=== PATIENT | male | born 1970 ===

== ENCOUNTER 2020-07-30 08:59 | Inpatient (IN) | payer SELFPAY ==
[2020-07-30] VITALS (25 sets, daily range): BP systolic 64–107; BP diastolic 29–61
[~2020-07-30] VITALS: Ht 170.2 cm; Wt 62.4 kg
[2020-07-30] MEDS ORDERED: CefTRIAXone 2gm/D5W 50ml BAG 50 ML IV ONE (09:10)
[2020-07-30] MEDS ORDERED: normal saline 1000ML IV soln IV ONE (09:10)
[2020-07-30] MEDS ORDERED: normal saline 1000ML IV soln IVB ONE (09:10)
[2020-07-30] MEDS ORDERED: TETanus/Pertussis (Acell)/Diphther VAC/PF (Tdap-Adult) 0.5ml syringe IMVAC ONE (09:15)
[2020-07-30] MEDS ORDERED: pantoprazole 40 MG vial IV ONE (09:15)
[2020-07-30] MEDS ORDERED: LIDOcaine 1% W/epiNEPHrine 1:200,000 10ml vial IJ ONE (09:15)
[2020-07-30] MEDS ORDERED: naloxone 2mg/2ml inj IV STA (09:16)
[2020-07-30] MEDS ORDERED: octreotide 100mcg/1 ml ampule SQ ONE (09:30)
[2020-07-30 09:36] LABS: ABG PCO2 (T) 40.9 mmHg (35.0-48.0); ABG PO2 (T) 109.6 mmHg (75.0-100.0); ALLEN'S TEST POSITIVE; PATIENT TEMPERATURE 35.3; PEEP 5 cm H2O; TOTAL HEMOGLOBIN < 4.7 G/dl (14.0-18.0)
--- NOTE | 2020-07-30 09:36 | NUR ---
[id number],[place] [id number]
[2020-07-30 09:43] LABS: BASOPHILS % (AUTO) 0.2 % (0-1); EOSINOPHILS % (AUTO) 0.1 % (0-6); LYMPHOCYTES # (AUTO) 0.7 X10'3 (1.1-4.8); LYMPHOCYTES % (AUTO) 7.3 % (21-51); MEAN CORPUSCULAR HEMOGLOBIN 27.3 PG (27.0-31.0); MEAN CORPUSCULAR HGB CONC 27.5 g/dL (33.0-36.5); MEAN CORPUSCULAR VOLUME 99.4 FL (78-98); MEAN PLATELET VOLUME 9.2 FL (7.4-10.4); MONOCYTES % (AUTO) 10.1 % (2-12); NEUTROPHILS # (AUTO) 8.3 X10'3 (1.8-7.7); NEUTROPHILS % (AUTO) 82.3 % (42-75); PLATELET COUNT 77 X10'3 (140-440); RED BLOOD COUNT 1.61 X10'6 (4.70-6.10); RED CELL DISTRIBUTION WIDTH 22.4 % (11.5-14.5); WHITE BLOOD COUNT 10.1 X10'3 (4.5-11.0)
[2020-07-30 09:46] LABS: HEMOGLOBIN 4.4 g/dl (14.0-17.9)
[2020-07-30 09:57] LABS: CLARITY,URINE CLOUDY (Clear); COLOR,URINE YELLOW (Yellow); GLUCOSE, URINE >=1000 mg/dl (Neg); KETONES,URINE 15 mg/dl (Neg); LEUKOCYTE ESTERASE ,URINE NEGATIVE (Neg); NITRITES, URINE NEGATIVE (Neg); OCCULT BLOOD,URINE MODERATE (Neg); PH,URINE 5.5 (4.8-8.0); PROTEIN,URINE TRACE mg/dl (Neg); UROBILINOGEN,URINE 0.2 E.U/dL (0.2-1.0)
[2020-07-30 09:58] LABS: UA COLLECTION TYPE FOLEY CATH
[2020-07-30] MEDS: octreotide inj. 500 MCG in normal saline 100ml IV soln 100 ML IV SCH (10:04)
[2020-07-30] MEDS ORDERED: iohexol 300mg/ml 100ml inj. ONE (10:07)
[2020-07-30 10:12] LABS: URINE AMPHETAMINE SCREEN NEGATIVE (Neg); URINE BARBITUATE SCREEN NEGATIVE (Neg); URINE BENZODIAZEPINES SCREEN NEGATIVE (Neg); URINE CANNABINOID SCREEN NEGATIVE (Neg); URINE COCAINE SCREEN NEGATIVE (Neg); URINE METHADONE SCREEN NEGATIVE (Neg); URINE OPIATE SCREEN NEGATIVE (Neg); URINE PHENCYCLIDINE SCREEN NEGATIVE (Neg)
[2020-07-30 10:12] LABS: ALANINE AMINOTRANSFERASE 61 U/L (12-78); ALBUMIN 1.6 G/DL (3.4-5.0); ALBUMIN/GLOBULIN RATIO 0.4 (1.1-1.5); ALKALINE PHOSPHATASE 317 IU/L (46-116); ANION GAP 32 (8-16); ASPARTATE AMINO TRANSFERASE 81 U/L (10-37); BILIRUBIN,TOTAL 1.4 MG/DL (0.1-1.0); BLOOD UREA NITROGEN 15 MG/DL (7-18); BUN/CREATININE RATIO 10.6 (5.4-32.0); CHLORIDE 100 MMOL/L (99-107); CREATININE 1.42 MG/DL (0.60-1.10); ETHANOL 0.014 GM/DL (0.0-0.010); POTASSIUM 3.9 MMOL/L (3.5-5.1); SODIUM 139 MMOL/L (135-145); TOTAL PROTEIN 5.5 G/DL (6.4-8.2); eGFR 52 ML/MIN
[2020-07-30] MEDS ORDERED: insulin regular, human 10 units/0.1 ml syringe IV ONE (10:15)
[2020-07-30 10:16] LABS: GLUCOSE 538 MG/DL (70-104)
[2020-07-30] MEDS: pantoprazole 40MG/NS 100ML BAG 100 ML IV SCH ×3 (10:16→19:28)
[2020-07-30 10:18] LABS: RBC,URINE 50-100 /HPF (0-2); SPERM MANY /HPF (NEGATIVE)
[2020-07-30 10:21] LABS: BACTERIA,URINE 2+ /HPF (Neg)
[2020-07-30 10:22] LABS: SQUAMOUS EPITHELIAL CELL,UR FEW /LPF (FEW)
[2020-07-30 10:39] LABS: PARTIAL THROMBOPLASTIN TIME 74 SECONDS (22-32)
[2020-07-30] MEDS ORDERED: magnesium 4gm in 100ml NS 100 ML IV PRN (11:40)
[2020-07-30] MEDS ORDERED: potassium Cl 20 mEq SR tablet PO PRN ×2 (11:40)
[2020-07-30] MEDS ORDERED: magnesium hydroxide 30ml (MOM) UD suspension PO PRN (11:40)
[2020-07-30] MEDS ORDERED: acetaminophen 325mg tablet PO PRN (11:40)
[2020-07-30] MEDS ORDERED: magnesium Cl slow-release 64mg tablet PO PRN (11:40)
[2020-07-30] MEDS ORDERED: magnesium 2GM in 50ml NS 50 ML IV PRN (11:40)
[2020-07-30] MEDS ORDERED: ondansetron/PF 4mg/2ml inj IV PRN (11:40)
[2020-07-30] MEDS: K, MAG and/or Phos replacement - Verify level? MC SCH (11:40)
[2020-07-30] MEDS ORDERED: ipratropium/albuterol 3ml nebule NEB PRN (11:40)
[2020-07-30] MEDS ORDERED: Neutra Phos packet PO PRN (11:40)
[2020-07-30] MEDS ORDERED: sodium phosphate inj. 30 MMOL in dextrose 5%-water 250 ML IV PRN (11:40)
[2020-07-30] MEDS ORDERED: sodium phosphate inj. 15 MMOL in dextrose 5%-water 250 ML IV PRN (11:40)
[2020-07-30 11:43] LABS: ANISOCYTOSIS 3+; PLATELET ESTIMATE DECREASED; TOTAL CELLS COUNTED 100
[2020-07-30 11:44] LABS: HYPOCHROMASIA 2+
--- NOTE | 2020-07-30 11:46 | NUR ---
TC FROM DR. HUERTAS FOR CONDITION REPORT. DR. HUERTAS STATES HE WILL SPEAK WITH BUSINESS INFO CONSULTANT TO COORDINATE CARE.
[2020-07-30] MEDS: Insulin Reg/NS 100units/100mL 100 ML IV SCH (11:56)
--- NOTE | 2020-07-30 12:15 | NUR ---
Patient in room ICU 2044. I have received report from Delia MASON and had the opportunity to ask questions and assume patient care. Reported that patient was never responsive or responsive to any stimuli. Reported heart rate in the low 100s, sating 100% on 100% fio2, blood pressure 105/52, 1700 luke red blood out of og tube in ER, 4 units PRBC given in ER. Sandostatin, protonix, insulin, and NS infusing as ordered to R quad Sublclavian. Temp reported 33.4 via bladder, RN stated bear hugger on. Rn stated she will be up shortly
[2020-07-30] MEDS: normal saline 1000ml 1,000 ML IV SCH ×2 (12:26→13:55)
--- NOTE | 2020-07-30 12:50 | NUR ---
[id number], copious amounts of blood coming out of mouth and nose, Blood pressure 70/40, Dr. Esteban bedsided ordered levophed, quickly maxed out levophed at 1 mcg/kg/min, added vasopressin and ordered to start at max dose fo 0.04u/min Dr. Esteban bedside initiated level one transfusion for 2l of warm saline then for a total of 2 units PRBC, 8 FFP, 1 pack platelets, and 2 cyro. new labs drawn and criticals reported to Dr. Eulalia Ace bedside to evaluate patient and preform EGD, at end of EGD patient dropped blood pressure to 70's systolic with a map in the 40's and dropped sat to the 50's, Fio2 increased to 100%, Epical gtt started, Dr. Esteban also started bicarb gtt. Transamic Acid given, human prothombin complex ordered and started Patient still bleeding profusely from the nose and mouth Dr. Esteban aware, ordered 2 more units PRBC, calcium gluconated ordered and administered Bicarb drip ordered and started 1700 luke red blood between the og suction, oral and nasal suctioning
[2020-07-30] MEDS ORDERED: NORepinephrine 8mg/ 250ml NS 250 ML IV ONE (13:15)
[2020-07-30 13:30] LABS: ABG BASE EXCESS -27.8 mmol/L (-2.0-2.0); ABG HCO3 5.3 mmol/L (22.0-26.0); ABG OXYGEN SATURATION 99.3 % (94-97); ABG PCO2 (T) 28.9 mmHg (35.0-48.0); ABG PO2 (T) 490.5 mmHg (75.0-100.0); ALLEN'S TEST POSITIVE; FCOHb 0.2 % (0.0-3.9); FMetHb 0.8 % (0.0-1.5); FO2Hb 98.3 % (94-97); PATIENT TEMPERATURE 33.7; PEEP 5 cm H2O; RESPIRATORY RATE 20 b/min; TIDAL VOLUME 400 mL
[2020-07-30] MEDS ORDERED: calcium gluconate inj. 2 GM in normal saline 100ml IV soln 80 ML IV STA (13:50)
[2020-07-30] MEDS ORDERED: tranexamic acid 1gm/0.7% sal. 100 ML IV ONE (14:00)
[2020-07-30 14:14] LABS: BASOPHILS # (AUTO) 0.1 X10'3 (0-0.2); BASOPHILS % (AUTO) 0.3 % (0-1); EOSINOPHILS # (AUTO) 0.1 X10'3 (0-0.9); HEMOGLOBIN 9.8 g/dl (14.0-17.9); MEAN PLATELET VOLUME 8.7 FL (7.4-10.4)
[2020-07-30 14:15] LABS: EOSINOPHILS % (AUTO) 0.3 % (0-6); LYMPHOCYTES # (AUTO) 1.2 X10'3 (1.1-4.8); MONOCYTES # (AUTO) 0.5 X10'3 (0-0.9); MONOCYTES % (AUTO) 2.9 % (2-12); NEUTROPHILS # (AUTO) 15.8 X10'3 (1.8-7.7); NEUTROPHILS % (AUTO) 89.5 % (42-75)
[2020-07-30 14:30] LABS: ALANINE AMINOTRANSFERASE 451 U/L (12-78); ALBUMIN 1.2 G/DL (3.4-5.0); ALBUMIN/GLOBULIN RATIO 0.4 (1.1-1.5); ALKALINE PHOSPHATASE 258 IU/L (46-116); ANION GAP 24 (8-16); ASPARTATE AMINO TRANSFERASE 987 U/L (10-37); BILIRUBIN,TOTAL 1.3 MG/DL (0.1-1.0); BLOOD UREA NITROGEN 17 MG/DL (7-18); BUN/CREATININE RATIO 10.5 (5.4-32.0); CALCIUM 6.4 MG/DL (8.5-10.1); CHLORIDE 108 MMOL/L (99-107); CREATININE 1.62 MG/DL (0.60-1.10); GLUCOSE 400 MG/DL (70-104); POTASSIUM 5.2 MMOL/L (3.5-5.1); SODIUM 140 MMOL/L (135-145); TOTAL PROTEIN 4.4 G/DL (6.4-8.2); eGFR 45 ML/MIN
[2020-07-30 14:45] LABS: PLATELET COUNT 44 X10'3 (140-440)
[2020-07-30 14:46] LABS: HEMATOCRIT 29.7 % (42.0-52.0); MEAN CORPUSCULAR VOLUME 90.8 FL (78-98); RED BLOOD COUNT 3.27 X10'6 (4.70-6.10); WHITE BLOOD COUNT 17.1 X10'3 (4.5-11.0)
[2020-07-30 14:47] LABS: MEAN CORPUSCULAR HEMOGLOBIN 29.9 PG (27.0-31.0); MEAN CORPUSCULAR HGB CONC 32.9 g/dL (33.0-36.5); RED CELL DISTRIBUTION WIDTH 15.8 % (11.5-14.5)
[2020-07-30] MEDS ORDERED: atropine 0.1mg/ml 10ml syringe ONE (15:00)
[2020-07-30] MEDS ORDERED: etomidate 2mg/ml inj. ONE (15:00)
[2020-07-30] MEDS ORDERED: rocuronium 10mg/ml inj IV ONE (15:00)
[2020-07-30] MEDS ORDERED: fentaNYL/PF 50MCG/1 ML 2ML syringe ONE (15:24)
[2020-07-30] MEDS ORDERED: MIDAZolam 1 MG/ML 5ML VIAL ONE (15:24)
[2020-07-30 15:25] LABS: ABG BASE EXCESS -22.2 mmol/L (-2.0-2.0); ABG HCO3 7.3 mmol/L (22.0-26.0); ABG OXYGEN SATURATION 95.2 % (94-97); ABG PCO2 (T) 30.1 mmHg (35.0-48.0); ABG PO2 (T) 86.8 mmHg (75.0-100.0); ALLEN'S TEST POSITIVE; FCOHb 0.1 % (0.0-3.9); FO2Hb 94.2 % (94-97); PATIENT TEMPERATURE 35.6; PEEP 5 cm H2O; RESPIRATORY RATE 20 b/min; TIDAL VOLUME 400 mL
[2020-07-30] MEDS ORDERED: NORepinephrine 8mg/ 250ml NS 250 ML IV SCH (15:50)
[2020-07-30 15:57] LABS: PARTIAL THROMBOPLASTIN TIME 65 SECONDS (22-32)
[2020-07-30 15:59] LABS: ALANINE AMINOTRANSFERASE 251 U/L (12-78); ALBUMIN 1.8 G/DL (3.4-5.0); ALBUMIN/GLOBULIN RATIO 0.8 (1.1-1.5); ALKALINE PHOSPHATASE 116 IU/L (46-116); ANION GAP 22 (8-16); ASPARTATE AMINO TRANSFERASE 614 U/L (10-37); BLOOD UREA NITROGEN 16 MG/DL (7-18); BUN/CREATININE RATIO 10.3 (5.4-32.0); CHLORIDE 110 MMOL/L (99-107); CREATININE 1.55 MG/DL (0.60-1.10); GLUCOSE 332 MG/DL (70-104); MAGNESIUM 1.8 MG/DL (1.5-2.4); PHOSPHORUS 6.8 MG/DL (2.3-4.5); SODIUM 143 MMOL/L (135-145); TOTAL PROTEIN 4.2 G/DL (6.4-8.2); eGFR 47 ML/MIN
[2020-07-30] MEDS: vasopressin inj. 40 UNIT in normal saline 50ml IV soln 38 ML IV SCH ×2 (16:01→23:29)
[2020-07-30 16:05] LABS: POTASSIUM 6.2 MMOL/L (3.5-5.1)
[2020-07-30] MEDS ORDERED: calcium chloride 100 MG/1 ML inj IV ONE (16:12)
[2020-07-30] MEDS ORDERED: epiNEPHrine 1 mg/ml 30ml MDV ONE (16:12)
[2020-07-30] MEDS ORDERED: sodium bicarbonate (8.4%) 1 mEq/ml syringe ONE (16:13)
[2020-07-30] MEDS ORDERED: HUMAN PROTHROMBIN COMPLEX PCC IV ONE (16:15)
[2020-07-30] MEDS: HUMAN PROTHROMBIN COMPLEX PCC IV ONE ×2 (16:30→16:45)
[2020-07-30 16:35] LABS: BASOPHILS % (AUTO) 0 % (0-1); EOSINOPHILS % (AUTO) 0.1 % (0-6); LYMPHOCYTES # (AUTO) 0.5 X10'3 (1.1-4.8); LYMPHOCYTES % (AUTO) 8.5 % (21-51); MEAN CORPUSCULAR HEMOGLOBIN 30.6 PG (27.0-31.0); MEAN CORPUSCULAR HGB CONC 30.7 g/dL (33.0-36.5); MEAN CORPUSCULAR VOLUME 99.6 FL (78-98); MEAN PLATELET VOLUME 8.3 FL (7.4-10.4); MONOCYTES # (AUTO) 0.1 X10'3 (0-0.9); MONOCYTES % (AUTO) 1.9 % (2-12); NEUTROPHILS # (AUTO) 5.2 X10'3 (1.8-7.7); NEUTROPHILS % (AUTO) 89.5 % (42-75); RED BLOOD COUNT 1.54 X10'6 (4.70-6.10); RED CELL DISTRIBUTION WIDTH 16.4 % (11.5-14.5); WHITE BLOOD COUNT 5.8 X10'3 (4.5-11.0)
[2020-07-30 16:38] LABS: HEMOGLOBIN 4.7 g/dl (14.0-17.9)
[2020-07-30 16:39] LABS: HEMATOCRIT 15.3 % (42.0-52.0); PLATELET COUNT 48 X10'3 (140-440)
[2020-07-30] MEDS ORDERED: epiNEPHrine inj 5 MG in normal saline 250ml IV soln 245 ML IV SCH (16:45)
[2020-07-30] MEDS: sodium bicarbonate (8.4%) inj. 100 MEQ in dextrose 5%-water 1,000 ML IV SCH (17:53)
[2020-07-30 18:20] LABS: ANISOCYTOSIS 1+; NUCLEATED RED BLOOD CELLS 2 /100WBC (0-0); PLATELET ESTIMATE DECREASED; TOTAL CELLS COUNTED 100
[2020-07-30 18:24] LABS: ACANTHOCYTES 2+; BURR CELLS 1+; HOWELL-JOLLY BODIES FEW
[2020-07-30 18:25] LABS: POLYCHROMASIA 1+
[2020-07-30] MEDS: NORepinephrine 32 MG in Normal Saline 250ml IV soln IV SCH ×2 (18:41→19:28)
[2020-07-30] MEDS: EPIneph 5MG & 1000mg Calcium/250ML bag IV PRN ×6 (19:35→23:29)
[2020-07-30 19:41] LABS: BASOPHILS % (AUTO) 0.4 % (0-1); HEMOGLOBIN 7.6 g/dl (14.0-17.9); MEAN CORPUSCULAR VOLUME 97.9 FL (78-98); RED BLOOD COUNT 2.51 X10'6 (4.70-6.10)
[2020-07-30 19:45] LABS: HEMATOCRIT 24.6 % (42.0-52.0); MEAN CORPUSCULAR HEMOGLOBIN 30.4 PG (27.0-31.0); RED CELL DISTRIBUTION WIDTH 16.3 % (11.5-14.5); WHITE BLOOD COUNT 7.9 X10'3 (4.5-11.0)
[2020-07-30 19:46] LABS: EOSINOPHILS % (AUTO) 0.1 % (0-6); LYMPHOCYTES # (AUTO) 1.1 X10'3 (1.1-4.8); LYMPHOCYTES % (AUTO) 14.2 % (21-51); MEAN PLATELET VOLUME 9.1 FL (7.4-10.4); MONOCYTES # (AUTO) 0.3 X10'3 (0-0.9); MONOCYTES % (AUTO) 4.3 % (2-12); NEUTROPHILS # (AUTO) 6.4 X10'3 (1.8-7.7)
[2020-07-30 19:48] LABS: PLATELET COUNT 39 X10'3 (140-440)
[2020-07-30 20:06] LABS: ALANINE AMINOTRANSFERASE 597 U/L (12-78); ALBUMIN 1.6 G/DL (3.4-5.0); ALBUMIN/GLOBULIN RATIO 0.7 (1.1-1.5); ALKALINE PHOSPHATASE 132 IU/L (46-116); ANION GAP 24 (8-16); BILIRUBIN,TOTAL 1.6 MG/DL (0.1-1.0); BLOOD UREA NITROGEN 15 MG/DL (7-18); BUN/CREATININE RATIO 7.7 (5.4-32.0); CALCIUM 6.9 MG/DL (8.5-10.1); CHLORIDE 112 MMOL/L (99-107); CREATININE 1.96 MG/DL (0.60-1.10); GLUCOSE 245 MG/DL (70-104); MAGNESIUM 1.8 MG/DL (1.5-2.4); PHOSPHORUS 7.2 MG/DL (2.3-4.5); POTASSIUM 5.2 MMOL/L (3.5-5.1); SODIUM 147 MMOL/L (135-145); TOTAL PROTEIN 3.9 G/DL (6.4-8.2); eGFR 36 ML/MIN
[2020-07-30 20:09] LABS: ASPARTATE AMINO TRANSFERASE 1614 U/L (10-37)
[2020-07-30 20:11] LABS: TOTAL CARBON DIOXIDE 10.8 MMOL/L (24-32); TROPONIN I 0.86 NG/ML (0.0-0.05)
[2020-07-30 20:13] LABS: PARTIAL THROMBOPLASTIN TIME > 139 SECONDS (22-32)
--- NOTE | 2020-07-30 20:30 | NUR ---
call placed to Dr. Anand regarding critical lab values, awaiting return call.
--- NOTE | 2020-07-30 20:48 | NUR ---
Spoke to Dr. Anand regarding critical lab values, PTT, Co2 10.8, Trop .86, Ptt greater then 139, and LA 16.9. reviewed that pt continues to bleed from his nose and mouth, reviewed that pt is on Maxamine amount of Levophed, max Epi nicky, max vasopressin, SBP in the 70-8- Addendum: 07/30/20 at 2055 by Dorothy Newell RN SBP remains 70-80 MAP less then 60. no new orders at this time
--- NOTE | 2020-07-30 23:10 | NUR ---
spoke to pts family updated on pts condition, they are driving here from [facility], they are about 6 hours away.
[2020-07-31] VITALS (12 sets, daily range): BP systolic 59–77; BP diastolic 35–40
[2020-07-31] MEDS: octreotide inj. 500 MCG in normal saline 100ml IV soln 100 ML IV SCH (00:44)
[2020-07-31 00:47] LABS: BASOPHILS # (AUTO) 0.1 X10'3 (0-0.2); BASOPHILS % (AUTO) 0.5 % (0-1); EOSINOPHILS % (AUTO) 0.1 % (0-6); LYMPHOCYTES # (AUTO) 1.1 X10'3 (1.1-4.8); MEAN CORPUSCULAR HEMOGLOBIN 29.9 PG (27.0-31.0); MEAN CORPUSCULAR HGB CONC 31.3 g/dL (33.0-36.5); MEAN CORPUSCULAR VOLUME 95.5 FL (78-98); MEAN PLATELET VOLUME 8.9 FL (7.4-10.4); MONOCYTES # (AUTO) 1.1 X10'3 (0-0.9); MONOCYTES % (AUTO) 9.8 % (2-12); NEUTROPHILS # (AUTO) 9.4 X10'3 (1.8-7.7); NEUTROPHILS % (AUTO) 80.6 % (42-75); RED BLOOD COUNT 2.29 X10'6 (4.70-6.10); RED CELL DISTRIBUTION WIDTH 16.5 % (11.5-14.5); WHITE BLOOD COUNT 11.7 X10'3 (4.5-11.0)
[2020-07-31 00:52] LABS: HEMATOCRIT 21.9 % (42.0-52.0); HEMOGLOBIN 6.9 g/dl (14.0-17.9); PLATELET COUNT 36 X10'3 (140-440)
[2020-07-31 01:07] LABS: ALBUMIN 1.5 G/DL (3.4-5.0); ALBUMIN/GLOBULIN RATIO 0.7 (1.1-1.5); ALKALINE PHOSPHATASE 166 IU/L (46-116); ANION GAP 22 (8-16); BILIRUBIN,TOTAL 2.1 MG/DL (0.1-1.0); BLOOD UREA NITROGEN 15 MG/DL (7-18); CALCIUM 7.8 MG/DL (8.5-10.1); CHLORIDE 113 MMOL/L (99-107); GLUCOSE 162 MG/DL (70-104); PHOSPHORUS 6.9 MG/DL (2.3-4.5); POTASSIUM 4.4 MMOL/L (3.5-5.1); SODIUM 146 MMOL/L (135-145); TOTAL PROTEIN 3.7 G/DL (6.4-8.2); eGFR 27 ML/MIN
[2020-07-31] MEDS: pantoprazole 40MG/NS 100ML BAG 100 ML IV SCH ×2 (01:07→06:00)
[2020-07-31 01:21] LABS: ALANINE AMINOTRANSFERASE 1149 U/L (12-78); ASPARTATE AMINO TRANSFERASE 3870 U/L (10-37); TOTAL CARBON DIOXIDE 11.5 MMOL/L (24-32)
--- NOTE | 2020-07-31 02:09 | NUR ---
Spoke to Dr. Anand regarding pts current critical care labs, HGB 6.9, HCT 21.9, PLT 36, Co2 11.5 LA 15.2 blood pressure of 66/38 continues on maximin Levophed, vasopressin and Epi-nicky, orders to DC insulin drip and to give a 10 pk plts.
[2020-07-31 03:14] LABS: ABG BASE EXCESS -22.3 mmol/L (-2.0-2.0); ABG HCO3 9.6 mmol/L (22.0-26.0); ABG OXYGEN SATURATION 40.8 % (94-97); ABG PCO2 (T) 52.4 mmHg (35.0-48.0); ABG PO2 (T) < 28.0 mmHg (75.0-100.0); ALLEN'S TEST POSITIVE; FCOHb 0.3 % (0.0-3.9); FMetHb 0.4 % (0.0-1.5); FO2Hb 40.5 % (94-97); PATIENT TEMPERATURE 36.2; PEEP 5 cm H2O; RESPIRATORY RATE 20 b/min; TIDAL VOLUME 400 mL
[2020-07-31] MEDS: NORepinephrine 32 MG in Normal Saline 250ml IV soln IV SCH (03:26)
[2020-07-31] MEDS: normal saline 1000ml 1,000 ML IV SCH (03:40)
--- NOTE | 2020-07-31 03:45 | NUR ---
spoke to Dr. Anand reviewed reviewed ABG/VBG results after 3 attempts to obtain an ABG but was only able to rec a VBG reviewed current v/s, orders received to not administer the Plt.s no need to do another attempt at an ABG. no further orders at this time.
[2020-07-31] MEDS: sodium bicarbonate (8.4%) inj. 100 MEQ in dextrose 5%-water 1,000 ML IV SCH (05:00)
--- NOTE | 2020-07-31 06:17 | NUR ---
report given to rec rn plan of care reviewed.
[2020-07-31] MEDS: Insulin Reg/NS 100units/100mL 100 ML IV SCH (06:25)
--- NOTE | 2020-07-31 06:37 | NUR ---
Patient in room ICU 2044. I have received report from Abiel AMSON and had the opportunity to ask questions and assume patient care.
--- NOTE | 2020-07-31 07:30 | NUR ---
Patients son and nephew arrived, they are bedside with Dr. Esteban, updated on patients current condition and prognosis, discussed code status. Patients son stated he would like to call the patients and inform her of his current condition. Son completed the phone call and stated that he wants to make him comfort care. Comfort care orders placed, per Dr. Esteban extubate and stop meds as soon as the patients family is ready. Discussed after care arrangements, they are trying to arrange a way to get the patients body back to [place] for burial. Waiting for one more visitor to say their goodbyes
[2020-07-31] MEDS ORDERED: morphine 10mg/ml inj. IV PRN (07:45)
[2020-07-31] MEDS ORDERED: NO HOME MEDS (07:55)
[2020-07-31] MEDS ORDERED: pantoprazole 40 MG vial IV SCH (08:00)
[2020-07-31] MEDS: K, MAG and/or Phos replacement - Verify level? MC SCH (08:00)
[2020-07-31] MEDS: EPIneph 5MG & 1000mg Calcium/250ML bag IV PRN ×3 (08:44)
--- NOTE | 2020-07-31 09:52 | NUR ---
Called [facility] [phone] rosalva gray ref# [id number] transfered to Toan the coordinator for our area, he was ruled out as an organ donor, but to call back after expiration for tissue to make their decision on donation
--- NOTE | 2020-07-31 10:40 | NUR ---
extubated patient to comfort care, rt bedside, all drips stopped
--- NOTE | 2020-07-31 10:51 | NUR ---
Asystole, no heart tones or lung sounds heard 10:51am
--- NOTE | 2020-07-31 10:52 | NUR ---
RN IS TO DOCUMENT YES TO ALL APPLICABLE AREAS Pronouncement of : 1. Time Physician Notified: 2. Date of : 07/31/2020 3. Time of : 10:51 4. DNR/Withdraw life support documented: yes 5. Monitor strip has been placed on chart: yes 6. Assessment process is of one-minute duration and includes following criteria: a) Patient is unresponsive to all stimuli: yes b) Pupils fixed and non-reactive: yes c) Auscultation of precordium reveals absence of heart tones:yes d) Auscultation of lungs reveals absence of breath sounds:yes e) Absence of blood pressure / all vital signs:yes f) QRS complexes are not present on monitor / EKG strip:yes g) Pacer spikes without capture:yes 4. Comments: No heart tones or breath sounds auscultated, ekg strip Asystole, patients family bedside, belonging sent home with patients kaye Guevara [phone] nephew graciela bedside as well [phone]
--- NOTE | 2020-07-31 11:08 | NUR ---
Noted pt has been made DNR w/ comfort care. Will continue to monitor. Addendum: 07/31/20 at [address] Amended: Links added.
--- NOTE | 2020-07-31 11:40 | NUR ---
contact phone numbers Armond Guevara [phone] Stefanie Woods [phone]
--- NOTE | 2020-07-31 11:41 | NUR ---
Called [facility] [phone] notified them of patients passing and the families wishes to use their services
== END 2020-07-31 10:51 | disposition expired | DRG 441 ==
LOC: ER 08:59 → EDBD 08:59 → ED HOLD 11:40 → ICU 2S 13:20
PROVIDERS: ADMIT Surgery Surgical Critical Care; ATTEND Surgery Surgical Critical Care
PROC: 5A1945Z Respiratory Ventilation, 24-96 Consecutive Hours (ICD-10-PCS; principal; 2020-07-30)
PROC: 0BH17EZ Insertion of Endotracheal Airway into Trachea, Via Natural or Artificial Opening (ICD-10-PCS; 2020-07-30)
PROC: 3E0234Z Introduction of Serum, Toxoid and Vaccine into Muscle, Percutaneous Approach (ICD-10-PCS; 2020-07-30)
PROC: 30233K1 Transfusion of Nonautologous Frozen Plasma into Peripheral Vein, Percutaneous Approach (ICD-10-PCS; 2020-07-30)
PROC: 30233N1 Transfusion of Nonautologous Red Blood Cells into Peripheral Vein, Percutaneous Approach (ICD-10-PCS; 2020-07-30)
PROC: 30233R1 Transfusion of Nonautologous Platelets into Peripheral Vein, Percutaneous Approach (ICD-10-PCS; 2020-07-30)
PROC: 30233M1 Transfusion of Nonautologous Plasma Cryoprecipitate into Peripheral Vein, Percutaneous Approach (ICD-10-PCS; 2020-07-30)
PROC: BW251ZZ Computerized Tomography (CT Scan) of Chest, Abdomen and Pelvis using Low Osmolar Contrast (ICD-10-PCS; 2020-07-30)
PROC: 02HV33Z Insertion of Infusion Device into Superior Vena Cava, Percutaneous Approach (ICD-10-PCS; 2020-07-30)
PROC: 0HQ1XZZ Repair Face Skin, External Approach (ICD-10-PCS; 2020-07-30)
PROC: 0DJ08ZZ Inspection of Upper Intestinal Tract, Via Natural or Artificial Opening Endoscopic (ICD-10-PCS; 2020-07-30)
DX: K76.6 Portal hypertension (principal); I85.11 Secondary esophageal varices with bleeding; J96.00 Acute respiratory failure, unspecified whether with hypoxia or hypercapnia; D62 Acute posthemorrhagic anemia; E87.2 Acidosis; R18.8 Other ascites; K74.60 Unspecified cirrhosis of liver; D72.829 Elevated white blood cell count, unspecified; E11.9 Type 2 diabetes mellitus without complications; W18.39XA Other fall on same level, initial encounter; F10.10 Alcohol abuse, uncomplicated; I86.4 Gastric varices; R57.8 Other shock; S01.81XA Laceration without foreign body of other part of head, initial encounter; Y90.0 Blood alcohol level of less than 20 mg/100 ml; Z51.5 Encounter for palliative care; Z23 Encounter for immunization; Y93.89 Activity, other specified; Y92.89 Other specified places as the place of occurrence of the external cause; Y99.8 Other external cause status
CPT/HCPCS: 36415; 36430; 36600; 43235; 70450; 71045; 71260; 72125; 74177; 80053; 80305; 80320; 81001; 82140; 82330; 82803; 82948; 83605; 83735; 83880; 84100; 84145; 84484; 85007; 85018; 85025; 85610; 85730; 86885; 86900; 86901; 86920; 87040; 87088; 90715; 93005; 94002; 94003; 94760; 94799; 96365; 96366; 96372; 96375; 99285; 99292; C9113; C9132; G0378; J0171; J0461; J0610; J0696; J1815; J2250; J2310; J2354; J3010; J3490; J7030; J7050; P9012; P9016; P9035; P9059; Q9967